=== PATIENT | male | born 1985 | race Caucasian/White ===

== ENCOUNTER 2019-12-15 18:33 | Emergency (ER) | payer MEDICAID, OTHER ==
[~2019-12-15] VITALS: Ht 177.8 cm; Wt 80.0 kg
[2019-12-15] MEDS ORDERED: SODIUM CHLORIDE 0.9% 1,000ML IVBOLUS ONE (19:00)
[2019-12-15] MEDS ORDERED: NALOXONE 0.4 MG/ML, 1ML IVPush PRN (19:00)
--- NOTE | 2019-12-15 19:10 | NUR ---
PT MORE AROUSABLE THAN ON ARRIVAL, ANSWERING QUESTIONS BUT CONFUSED. CONTINUE TO MONITOR.
--- NOTE | 2019-12-15 19:55 | NUR ---
REPORT RECEIVED FROM YAHIR CARRION. [facility]
[2019-12-15 19:59] VITALS: BP 146/87
--- NOTE | 2019-12-15 20:00 | NUR ---
PT RESTING IN [facility]. CLOTHES REMOVED. GOWN PUT ON. PT IS AROUSABLE AND ANSWERS QUESTIONS. HE HELPED ME REMOVE HIS CLOTHES AND PUT THE GOWN ON HIMSELF. WILL CONTINUE TO MONITOR
--- NOTE | 2019-12-15 20:46 | NUR ---
PT ESCORTED OUT WITH STEADY GAIT. PT [id number]. 100% ON ROOM AIR
== END 2019-12-15 20:47 | disposition home or self-care (01) ==
LOC: ED 20:41
DX: F10.129 Alcohol abuse with intoxication, unspecified (principal); F11.129 Opioid abuse with intoxication, unspecified; R41.82 Altered mental status, unspecified; Y90.0 Blood alcohol level of less than 20 mg/100 ml
CPT/HCPCS: 71045; 96360; 99283; J7030

== ENCOUNTER 2020-12-27 12:43 | Emergency (ER) | payer MEDICAID ==
[~2020-12-27] VITALS: Ht 177.8 cm; Wt 113.0 kg
[2020-12-27 14:19] VITALS: BP 127/70
== END 2020-12-27 14:21 | disposition home or self-care (01) ==
LOC: ED 14:05
DX: K08.89 Other specified disorders of teeth and supporting structures (principal)
CPT/HCPCS: 99283